=== PATIENT | female | born 1935 | race Caucasian/White ===

== ENCOUNTER 2019-12-12 10:40 | Inpatient (IN) | payer MEDICARE, OTHER ==
[~2019-12-12] VITALS: Ht 165.1 cm; Wt 53.5 kg
--- NOTE | 2019-12-12 11:02 | NUR ---
First contact with pt. Pt's primary history provider due to pt's hx of dementia. Pt's reports that pt has had intermittent difficulty swallowing food and liquids since early June 2019. Pt has been evaluated by her PCP Dr. Naik for this and was referred to ENT. Due to the pandemic closures pt was unable to follow up with ENT. Pt reports increased difficulty swallowing even her spit over the last 36 hours with no other PO intake. Pt resting in bed in gown, resps even and unlabored. Pt denies pain, when she speaks her voice is clear. Pt requesting something to wet her mouth. Pt provided wet washcloth to wet her mouth.
--- NOTE | 2019-12-12 11:08 | NUR ---
Dr. Garcia at bedside to evaluate pt.
--- NOTE | 2019-12-12 12:32 | NUR ---
Pt back from esophogram, resting in bed. Pt provided lemon swabs per request, denies other needs.
--- NOTE | 2019-12-12 13:45 | NUR ---
TASK RN: ER MD SPEAKING WITH PT AND HER ABOUT XRAY SHOWING THAT PT INHALED BARIUM AND THAT SHE WILL BE ADMITTED. PT HAS A YAUNKER IN HAND THAT SHE IS USING TO MANAGE SECRETIONS. TECH AT BEDSIDE ESTABLISHING IV
[2019-12-12 13:59] LABS: BASOPHILS # (AUTO) 0.02 x10^3/uL (0-0.1); BASOPHILS % (AUTO) 0 % (0-1); EOSINOPHILS % (AUTO) 0 % (1-7); LYMPHOCYTES # (AUTO) 0.76 x10^3/uL (1-3.4); LYMPHOCYTES % (AUTO) 9 % (22-44); MD NO; MEAN CORPUSCULAR HEMOGLOBIN 30.6 pg (27.0-34.8); MEAN CORPUSCULAR HGB CONC 33.4 g/dL (32.4-35.8); MEAN CORPUSCULAR VOLUME 91.7 fL (80-100); MEAN PLATELET VOLUME 8.5 fL (7.4-10.4); MONOCYTES # (AUTO) 0.43 x10^3/uL (0.2-0.8); MONOCYTES % (AUTO) 5 % (2-9); NEUTROPHILS # (AUTO) 7.17 x10^3/uL (1.8-6.8); NEUTROPHILS % (AUTO) 86 % (42-75); PLATELET COUNT 216 x10^3/uL (130-400); RED BLOOD COUNT 5.01 x10^6/uL (3.82-5.3); RED CELL DISTRIBUTION WIDTH 13.5 % (9.6-15.2)
[2019-12-12 14:05] LABS: ANION GAP 5 mmol/L (5-15); CALCIUM 9.3 mg/dL (8.5-10.1); CHLORIDE 113 mmol/L (98-107); CREATININE 1.38 mg/dL (0.55-1.02)
--- NOTE | 2019-12-12 14:39 | NUR ---
Report called to Kam HENDERSON on med/surg. Floor ready for pt transport.
[2019-12-12 15:15] VITALS: BP 105/62
[2019-12-12] MEDS ORDERED: ACETAMINOPHEN 650 MG SUPP PR PRN (16:00)
[2019-12-12] MEDS ORDERED: hydrALAzine 20 MG/ML, 1ML IVPush PRN (16:00)
[2019-12-12] MEDS ORDERED: BISACODYL 10 MG SUPP PR PRN (16:00)
[2019-12-12] MEDS ORDERED: ONDANSETRON 2MG/ML, 2ML IVPush PRN (16:00)
[2019-12-12] MEDS: D5%-0.45% NACL 1,000 ML IV SCH ×2 (16:28→21:58)
[2019-12-12] MEDS ORDERED: DILTIAZEM 5 MG/ML, 5ML IVPush ONE (16:30)
[2019-12-12] MEDS ORDERED: DILTIAZEM 125 MG in SODIUM CHLORIDE 0.9% 100 ML IV SCH (16:30)
[2019-12-12 17:18] LABS: MICROSCOPIC INDICATED
[2019-12-12] MEDS ORDERED: GADOTERATE 7.5 MMOL/15 ML SYR ONE (18:00)
[2019-12-12] MEDS ORDERED: LORazepam 2 MG/ML, 1ML IVPush ONE (19:30)
[2019-12-12 20:07] VITALS: BP 91/61
[2019-12-12] MEDS: DILTIAZEM 5 MG/ML, 5ML IVPush PRN ×3 (20:12→21:18)
[2019-12-12] MEDS ORDERED: HEPARIN 5,000 UNITS/ML, 1ML IV ONE (21:00)
[2019-12-12] MEDS ORDERED: PEDS NS BOLUS IV.SOLN 20ML/KG IVBOLUS ONE (21:00)
[2019-12-12] MEDS ORDERED: HEPARIN 5,000 UNITS/ML, 1ML IV PRN (21:00)
[2019-12-12] MEDS ORDERED: SODIUM CHLORIDE 0.9%, 500ML IVBOLUS ONE (21:00)
[2019-12-12] MEDS ORDERED: HEPARIN 25,000 UNITS/250ML PMX 250 ML IV PRN (21:00)
[2019-12-12 23:05] VITALS: BP 103/68
[2019-12-13] MEDS: DILTIAZEM 125 MG in SODIUM CHLORIDE 0.9% 100 ML IV SCH ×2 (00:01→22:34)
[2019-12-13 00:30] VITALS: BP 104/69
[2019-12-13 06:01] LABS: BASOPHILS # (AUTO) 0.01 x10^3/uL (0-0.1); BASOPHILS % (AUTO) 0 % (0-1); EOSINOPHILS % (AUTO) 0 % (1-7); LYMPHOCYTES # (AUTO) 0.85 x10^3/uL (1-3.4); LYMPHOCYTES % (AUTO) 6 % (22-44); MD NO; MEAN CORPUSCULAR HEMOGLOBIN 29.9 pg (27.0-34.8); MEAN CORPUSCULAR HGB CONC 32.3 g/dL (32.4-35.8); MEAN CORPUSCULAR VOLUME 92.6 fL (80-100); MEAN PLATELET VOLUME 8.2 fL (7.4-10.4); MONOCYTES # (AUTO) 0.72 x10^3/uL (0.2-0.8); MONOCYTES % (AUTO) 5 % (2-9); NEUTROPHILS # (AUTO) 13.08 x10^3/uL (1.8-6.8); NEUTROPHILS % (AUTO) 89 % (42-75); PLATELET COUNT 187 x10^3/uL (130-400); RED BLOOD COUNT 4.61 x10^6/uL (3.82-5.3)
[2019-12-13 06:02] LABS: ALBUMIN 3.4 g/dL (3.4-5.0); ANION GAP 6 mmol/L (5-15); CALCIUM 8.4 mg/dL (8.5-10.1); CHLORIDE 114 mmol/L (98-107)
[2019-12-13 06:05] LABS: ALANINE AMINOTRANSFERASE 32 U/L (12-78); ALKALINE PHOSPHATASE 75 U/L (45-117); BILIRUBIN,TOTAL 2.7 mg/dL (0.2-1.0); CHOL/HDL RATIO 2.8; CHOLESTEROL, TOTAL 156 mg/dL (140-239); CREATININE 1.24 mg/dL (0.55-1.02); HDL CHOL % 36 % (28-40); HDL CHOLESTEROL (DIRECT) 56 mg/dL (40-60); LDL CHOLESTEROL,CALCULATED 89 mg/dL (54-169); LDL/HDL RATIO 1.6 (0.5-3.0); TOTAL PROTEIN 6.3 g/dL (6.4-8.2); TRIGLYCERIDES 53 mg/dL (50-200); VLDL CHOLESTEROL 11 mg/dL (0-25)
[2019-12-13] MEDS ORDERED: CHLORHEXIDINE 15 ML UDC ONE (07:11)
[2019-12-13 07:24] VITALS: BP 100/63
[2019-12-13] MEDS ORDERED: FENTANYL PF 100 MCG/2ML IV PRN (08:00)
[2019-12-13] MEDS ORDERED: LABETALOL 5MG/ML, 20ML IV PRN (08:00)
[2019-12-13] MEDS ORDERED: hydrALAzine 20 MG/ML, 1ML IV PRN (08:00)
[2019-12-13] MEDS ORDERED: ACETAMINOPHEN 325 MG TABLET PO PRN (08:00)
[2019-12-13] MEDS ORDERED: PROMETHAZINE 25 MG/ML, 1ML IVPush PRN (08:00)
[2019-12-13] MEDS ORDERED: HYDROcodone/APAP 7.5-325MG/15ML UDC PO PRN (08:00)
[2019-12-13] MEDS ORDERED: morphine SULFATE 10 MG/ML, 1ML IVPush PRN (08:00)
[2019-12-13] MEDS ORDERED: ONDANSETRON 2MG/ML, 2ML IVPush PRN (08:00)
[2019-12-13] MEDS ORDERED: MIDAZOLAM 1 MG/ML, 2ML ONE (09:05)
[2019-12-13] MEDS ORDERED: PROPOFOL 10 MG/ML, 20ML ONE (09:21)
[2019-12-13] MEDS ORDERED: AMPICILLIN/SULBACTAM 1,500 MG in SODIUM CHLORIDE 0.9% 50 ML IV SCH (10:00)
[2019-12-13 10:19] VITALS: BP 104/70
[2019-12-13 13:00] VITALS: BP 90/62
[2019-12-13 16:56] VITALS: BP 102/62
[2019-12-13] MEDS ORDERED: METOPROLOL 1 MG/ML, 5ML IVPush PRN (17:00)
[2019-12-13 19:25] VITALS: BP 101/59
[2019-12-13] MEDS: D5%-0.45% NACL 1,000 ML IV SCH (19:34)
[2019-12-13] MEDS: AMPICILLIN/SULBACTAM 3 GM in SODIUM CHLORIDE 0.9% 100 ML IV SCH (21:25)
[2019-12-14 00:58] VITALS: BP 114/73
[2019-12-14 05:05] LABS: BASOPHILS # (AUTO) 0.02 x10^3/uL (0-0.1); BASOPHILS % (AUTO) 0 % (0-1); EOSINOPHILS # (AUTO) 0.02 x10^3/uL (0-0.4); EOSINOPHILS % (AUTO) 0 % (1-7); LYMPHOCYTES # (AUTO) 0.93 x10^3/uL (1-3.4); LYMPHOCYTES % (AUTO) 13 % (22-44); MD NO; MEAN CORPUSCULAR HEMOGLOBIN 30.2 pg (27.0-34.8); MEAN CORPUSCULAR HGB CONC 32.5 g/dL (32.4-35.8); MEAN CORPUSCULAR VOLUME 92.7 fL (80-100); MEAN PLATELET VOLUME 8.3 fL (7.4-10.4); MONOCYTES # (AUTO) 0.53 x10^3/uL (0.2-0.8); MONOCYTES % (AUTO) 8 % (2-9); NEUTROPHILS # (AUTO) 5.45 x10^3/uL (1.8-6.8); NEUTROPHILS % (AUTO) 78 % (42-75); PLATELET COUNT 148 x10^3/uL (130-400); RED BLOOD COUNT 3.92 x10^6/uL (3.82-5.3); RED CELL DISTRIBUTION WIDTH 13.2 % (9.6-15.2)
[2019-12-14 05:07] LABS: ALANINE AMINOTRANSFERASE 29 U/L (12-78); ALBUMIN 2.6 g/dL (3.4-5.0); ANION GAP 4 mmol/L (5-15); CALCIUM 7.6 mg/dL (8.5-10.1); CHLORIDE 116 mmol/L (98-107); CREATININE 0.78 mg/dL (0.55-1.02)
[2019-12-14 05:09] LABS: ALKALINE PHOSPHATASE 57 U/L (45-117); BILIRUBIN,TOTAL 2.1 mg/dL (0.2-1.0); TOTAL PROTEIN 5.1 g/dL (6.4-8.2)
[2019-12-14] MEDS: D5%-0.45% NACL 1,000 ML IV SCH ×2 (06:15→17:55)
[2019-12-14] MEDS: AMPICILLIN/SULBACTAM 3 GM in SODIUM CHLORIDE 0.9% 100 ML IV SCH ×2 (08:42→20:42)
[2019-12-14 09:30] VITALS: BP 99/69
[2019-12-14 14:19] VITALS: BP 113/73
[2019-12-14 19:15] VITALS: BP 106/73
[2019-12-14] MEDS: DILTIAZEM 125 MG in SODIUM CHLORIDE 0.9% 100 ML IV SCH (23:23)
[2019-12-15 00:37] VITALS: BP 103/68
[2019-12-15 07:15] VITALS: BP_SYST 143; BP_SYST 97; BP_DIAS 61; BP_DIAS 82
[2019-12-15] MEDS: D5%-0.45% NACL 1,000 ML IV SCH (09:00)
[2019-12-15] MEDS: AMPICILLIN/SULBACTAM 3 GM in SODIUM CHLORIDE 0.9% 100 ML IV SCH ×2 (09:00→20:12)
[2019-12-15] MEDS ORDERED: METOPROLOL 1 MG/ML, 5ML ONE (11:08)
[2019-12-15] MEDS ORDERED: METOPROLOL 1 MG/ML, 5ML IVPush ONE (11:30)
[2019-12-15 12:22] VITALS: BP 113/72
[2019-12-15 18:51] VITALS: BP 138/91
[2019-12-15] MEDS: DILTIAZEM 125 MG in SODIUM CHLORIDE 0.9% 100 ML IV SCH (22:42)
[2019-12-16 02:00] VITALS: BP 114/48
[2019-12-16 02:19] VITALS: BP 124/86
[2019-12-16 04:47] LABS: BASOPHILS # (AUTO) 0.02 x10^3/uL (0-0.1); BASOPHILS % (AUTO) 0 % (0-1); EOSINOPHILS # (AUTO) 0.02 x10^3/uL (0-0.4); EOSINOPHILS % (AUTO) 0 % (1-7); LYMPHOCYTES # (AUTO) 0.76 x10^3/uL (1-3.4); LYMPHOCYTES % (AUTO) 10 % (22-44); MD NO; MEAN CORPUSCULAR HEMOGLOBIN 30.1 pg (27.0-34.8); MEAN CORPUSCULAR HGB CONC 32.7 g/dL (32.4-35.8); MEAN CORPUSCULAR VOLUME 91.9 fL (80-100); MEAN PLATELET VOLUME 8.2 fL (7.4-10.4); MONOCYTES # (AUTO) 0.55 x10^3/uL (0.2-0.8); MONOCYTES % (AUTO) 7 % (2-9); NEUTROPHILS # (AUTO) 6.33 x10^3/uL (1.8-6.8); NEUTROPHILS % (AUTO) 82 % (42-75); PLATELET COUNT 165 x10^3/uL (130-400); RED BLOOD COUNT 4.75 x10^6/uL (3.82-5.3); RED CELL DISTRIBUTION WIDTH 13.5 % (9.6-15.2)
[2019-12-16 04:55] LABS: CALCIUM 8.2 mg/dL (8.5-10.1); CHLORIDE 113 mmol/L (98-107)
[2019-12-16] MEDS: D5%-0.45% NACL 1,000 ML IV SCH ×2 (05:00→16:13)
[2019-12-16 05:01] LABS: ALANINE AMINOTRANSFERASE 34 U/L (12-78); ALBUMIN 3.3 g/dL (3.4-5.0); ALKALINE PHOSPHATASE 83 U/L (45-117); ANION GAP 8 mmol/L (5-15); BILIRUBIN,TOTAL 3.1 mg/dL (0.2-1.0); CREATININE 0.78 mg/dL (0.55-1.02); TOTAL PROTEIN 6.5 g/dL (6.4-8.2)
[2019-12-16] MEDS ORDERED: LORazepam 2 MG/ML, 1ML IVPush ONE (05:30)
[2019-12-16] MEDS ORDERED: LORazepam 2 MG/ML, 1ML ONE (05:36)
[2019-12-16] MEDS ORDERED: HALOPERIDOL 5 MG/ML ONE (06:18)
[2019-12-16] MEDS ORDERED: HALOPERIDOL 5 MG/ML IM PRN (06:30)
[2019-12-16 07:31] VITALS: BP 102/64
[2019-12-16] MEDS: AMPICILLIN/SULBACTAM 3 GM in SODIUM CHLORIDE 0.9% 100 ML IV SCH ×2 (10:30→22:20)
[2019-12-16 13:23] VITALS: BP 146/73
[2019-12-16] MEDS: DILTIAZEM 125 MG in SODIUM CHLORIDE 0.9% 100 ML IV SCH (16:13)
[2019-12-16 20:00] VITALS: BP 114/52
[2019-12-17 01:43] VITALS: BP_SYST 104; BP_SYST 116; BP_DIAS 58; BP_DIAS 64
[2019-12-17] MEDS: D5%-0.45% NACL 1,000 ML IV SCH ×2 (02:25→17:03)
[2019-12-17 07:27] VITALS: BP 116/66
[2019-12-17] MEDS: AMPICILLIN/SULBACTAM 3 GM in SODIUM CHLORIDE 0.9% 100 ML IV SCH ×2 (09:59→21:59)
[2019-12-17] MEDS ORDERED: DILTIAZEM 60 MG TABLET PO SCH (11:00)
[2019-12-17 13:51] VITALS: BP 123/90
[2019-12-17] MEDS: DILTIAZEM 125 MG in SODIUM CHLORIDE 0.9% 100 ML IV SCH ×2 (17:02→18:39)
[2019-12-17 20:31] VITALS: BP 125/79
[2019-12-18 00:26] VITALS: BP 113/92
[2019-12-18] MEDS: D5%-0.45% NACL 1,000 ML IV SCH ×2 (03:14→17:51)
[2019-12-18 07:42] VITALS: BP 124/79
[2019-12-18] MEDS: DILTIAZEM 125 MG in SODIUM CHLORIDE 0.9% 100 ML IV SCH ×2 (08:50→19:52)
[2019-12-18] MEDS: AMPICILLIN/SULBACTAM 3 GM in SODIUM CHLORIDE 0.9% 100 ML IV SCH ×2 (08:56→20:02)
[2019-12-18] MEDS ORDERED: MAGNESIUM SULFATE/D5W 100 ML IV ONE (11:00)
[2019-12-18] MEDS ORDERED: POTASSIUM CHLORIDE 20 MEQ in SODIUM CHLORIDE 0.9% 250 ML IV ONE (11:00)
[2019-12-18 13:00] VITALS: BP 116/74
[2019-12-18 16:16] LABS: INTERNATIONAL NORMALIZED RATIO 1.11 (0.93-1.1); PROTHROMBIN TIME 11.4 Seconds (9.6-11.5)
[2019-12-18 20:02] VITALS: BP 110/68
[2019-12-19 00:02] VITALS: BP 105/62
[2019-12-19] MEDS: D5%-0.45% NACL 1,000 ML IV SCH (03:58)
[2019-12-19 04:59] LABS: ANION GAP 6 mmol/L (5-15); CALCIUM 7.9 mg/dL (8.5-10.1); CHLORIDE 116 mmol/L (98-107)
[2019-12-19 05:00] LABS: BASOPHILS # (AUTO) 0.02 x10^3/uL (0-0.1); BASOPHILS % (AUTO) 0 % (0-1); CREATININE 0.66 mg/dL (0.55-1.02); EOSINOPHILS % (AUTO) 0 % (1-7); LYMPHOCYTES # (AUTO) 0.63 x10^3/uL (1-3.4); LYMPHOCYTES % (AUTO) 10 % (22-44); MD NO; MEAN CORPUSCULAR HEMOGLOBIN 30.1 pg (27.0-34.8); MEAN CORPUSCULAR HGB CONC 33.2 g/dL (32.4-35.8); MEAN CORPUSCULAR VOLUME 90.8 fL (80-100); MONOCYTES # (AUTO) 0.53 x10^3/uL (0.2-0.8); MONOCYTES % (AUTO) 8 % (2-9); NEUTROPHILS # (AUTO) 5.04 x10^3/uL (1.8-6.8); NEUTROPHILS % (AUTO) 81 % (42-75); PLATELET COUNT 127 x10^3/uL (130-400); RED BLOOD COUNT 4.01 x10^6/uL (3.82-5.3); RED CELL DISTRIBUTION WIDTH 13.1 % (9.6-15.2)
[2019-12-19 06:36] VITALS: BP 109/63
[2019-12-19] MEDS ORDERED: ONDANSETRON 2MG/ML, 2ML IVPush PRN (07:00)
[2019-12-19] MEDS: LORazepam 2 MG/ML, 1ML IVPush PRN (12:36)
[2019-12-19] MEDS: MORPHINE SULFATE 4 MG/ML, 1ML IVPush PRN ×3 (12:39→20:26)
[2019-12-20] MEDS: MORPHINE SULFATE 4 MG/ML, 1ML IVPush PRN ×3 (00:02→10:30)
[2019-12-20] MEDS: LORazepam 2 MG/ML, 1ML IVPush PRN ×7 (04:57→20:55)
[2019-12-20] MEDS ORDERED: SCOPOLAMINE 1MG PATCH TD SCH (14:30)
[2019-12-20] MEDS: ATROPINE OPHTH SOLN 1%, 5ML PO PRN ×4 (15:17→20:48)
[2019-12-21] MEDS: ATROPINE OPHTH SOLN 1%, 5ML PO PRN (02:04)
[2019-12-21] MEDS: LORazepam 2 MG/ML, 1ML IVPush PRN (02:04)
== END 2019-12-21 12:00 | disposition expired | DRG 177 ==
LOC: ED 11:32 → EDIP 13:32 → 3N 15:01 → 4WST 18:47 → 4NW 12-19 13:33
PROVIDERS: ADMIT Internal Medicine; ATTEND Hospitalist
PROC: 0D718ZZ Dilation of Upper Esophagus, Via Natural or Artificial Opening Endoscopic (ICD-10-PCS; principal; 2019-12-13 09:00)
DX: J69.0 Pneumonitis due to inhalation of food and vomit (principal); E43 Unspecified severe protein-calorie malnutrition; G93.41 Metabolic encephalopathy; N17.0 Acute kidney failure with tubular necrosis; J96.01 Acute respiratory failure with hypoxia; E87.0 Hyperosmolality and hypernatremia; Z68.1 Body mass index [BMI] 19.9 or less, adult; F03.90 Unspecified dementia, unspecified severity, without behavioral disturbance, psychotic disturbance, mood disturbance, and anxiety; J44.9 Chronic obstructive pulmonary disease, unspecified; E86.0 Dehydration; K59.09 Other constipation; I48.91 Unspecified atrial fibrillation; Z20.828 Contact with and (suspected) exposure to other viral communicable diseases; I10 Essential (primary) hypertension; Z66 Do not resuscitate; Z87.891 Personal history of nicotine dependence; Z82.49 Family history of ischemic heart disease and other diseases of the circulatory system
CPT/HCPCS: 36415; 70450; 70543; 70553; 71045; 74220; 74230; 80048; 80053; 80061; 81001; 83735; 84439; 84443; 85025; 85520; 85610; 87040; 87086; 87635; 93005; 93306; 99285; G0378; J0295; J1644; J2250; J2270; J2704; J3480; A9575; J1630; J2060; J7040; J7050